=== PATIENT | female | born 1980 | race Caucasian/White ===

== ENCOUNTER 2017-01-30 05:33 | Inpatient (IN) | payer OTHER ==
[2017-01-30] VITALS (19 sets, daily range): BP systolic 103–126; BP diastolic 58–109; PULSE 16–84; TEMP 97.5–98.2
[~2017-01-30] VITALS: Ht 175.3 cm; Wt 95.9 kg
[~2017-01-30 05:33] MED LIST: SYNTHROID0.088 MG/T PO
[2017-01-30] MEDS ORDERED: SYNTHROID0.1 MG/TAB PO (06:27)
[2017-01-30] MEDS ORDERED: PRENATAL1 TA7 PO (06:28)
[2017-01-30] MEDS ORDERED: FLONASE NASAL S16 GM NS (06:28)
[2017-01-30] MEDS ORDERED: ZYRTEC 10MG10 MG PO (06:29)
[2017-01-30] MEDS ORDERED: ZOVIRAX400 MG PO (06:30)
[2017-01-30] MEDS ORDERED: PRIL40 PO (06:31)
[2017-01-30 06:47] LABS: BASO % 0.3 % (0.0-2.0); EOS # 0.1 (0.0-0.7); EOS % 0.8 % (0-4.0); GRAN # 4.3 (1.4-6.5); GRAN % 68.8 % (42.2-75.2); HEMOGLOBIN 12.1 g/dl (12.5-16.0); LYMPH # 1.5 (1.2-3.4); LYMPH % 23.3 % (20.0-51.0); MEAN CELL VOLUME 91 fl (80.0-100.0); MEAN CORPUSCULAR HEMOGLOBIN 30 pg (27.0-31.0); MEAN CORPUSCULAR HGB CONC 34 g/dl (33.0-37.0); MEAN PLATELET VOLUME 11.4 fl (7.4-10.4); MONO # 0.4 (0.1-0.6); MONO % 6.6 % (1.7-9.3); PLATELET COUNT 214 K/mm3 (130-400); RED BLOOD COUNT 3.98 M/mm3 (4.10-5.30); REDCELL DISTRIBUTION WIDTH-CV 13.2 % (11.5-14.5); WHITE BLOOD COUNT 6.2 K/mm3 (4.8-10.8)
[2017-01-30 06:48] LABS: HEMATOCRIT 36.1 % (37.0-47.0)
[2017-01-31 06:30] VITALS: BP 109/65; PULSE 72; TEMP 97.4
[2017-01-31 07:30] LABS: HEMATOCRIT 31.8 % (37.0-47.0); HEMOGLOBIN 10.6 g/dl (12.5-16.0)
[2017-01-31] MEDS ORDERED: IBU600 MG PO (09:11)
[2017-01-31] MEDS ORDERED: PERCOCET 325 MG1 TA2 PO (09:11)
[2017-01-31 16:00] VITALS: BP 114/68; PULSE 78; TEMP 98.3
[2017-01-31 20:00] VITALS: BP 111/63; PULSE 66; TEMP 97.1
[2017-02-01 07:00] VITALS: BP 117/54; PULSE 67; TEMP 97.2
== END 2017-02-01 15:53 | disposition home or self-care (01) | DRG 766 ==
LOC: OB 05:33 → EDSTATUS 09:01 → LDR 09:02 → LDRO 13:14 → OB 02-01 15:53
PROVIDERS: Obstetrics & Gynecology
PROC: 10D00Z1 Extraction of Products of Conception, Low, Open Approach (ICD-10-PCS; principal; 2017-01-30)
DX: O32.1XX0 Maternal care for breech presentation, not applicable or unspecified (principal); O99.284 Endocrine, nutritional and metabolic diseases complicating childbirth; E03.9 Hypothyroidism, unspecified; Z3A.39 39 weeks gestation of pregnancy; Z37.0 Single live birth
CPT/HCPCS: J0690; J1885; J2270; J2370; J2405; J2590; J2765; J7120

== ENCOUNTER → 2017-02-11 | Outpatient (CLI) | payer OTHER ==
[~2017-02-11] MED LIST changes: +FLONASE NASAL S16 GM NS; +IBU600 MG PO; +PERCOCET 325 MG1 TA2 PO; +PRENATAL1 TA7 PO; +PRIL40 PO; +SYNTHROID0.1 MG/TAB PO; +ZOVIRAX400 MG PO; +ZYRTEC 10MG10 MG PO
== END ==
LOC: OLC 14:10
DX: Z39.1 Encounter for care and examination of lactating mother (principal); Z71.89 Other specified counseling

== ENCOUNTER → 2017-02-17 | Outpatient (CLI) | payer OTHER | LOC: OLC 13:18 | DX: Z39.1 Encounter for care and examination of lactating mother (principal); Z71.89 Other specified counseling ==

== ENCOUNTER → 2017-02-24 | Outpatient (CLI) | payer OTHER | LOC: OLC 13:31 | DX: Z39.1 Encounter for care and examination of lactating mother (principal); Z71.89 Other specified counseling ==

== ENCOUNTER 2018-10-25 18:43 | Emergency (ER) | payer OTHER ==
[~2018-10-25] VITALS: Ht 175.3 cm; Wt 87.3 kg
[2018-10-25 18:49] VITALS: TEMP 97.9
[2018-10-25 19:23] LABS: COLLECTION METHOD CLEAN CATCH
[2018-10-25 19:26] LABS: BASO % 0.3 % (0.0-2.0); EOS % 0.5 % (0-4.0); GRAN # 5.9 (1.4-6.5); HEMOGLOBIN 12.6 g/dl (12.5-16.0); LYMPH # 1.3 (1.2-3.4); LYMPH % 16.4 % (20.0-51.0); MEAN CELL VOLUME 93 fl (80.0-100.0); MEAN CORPUSCULAR HEMOGLOBIN 32 pg (27.0-31.0); MEAN CORPUSCULAR HGB CONC 35 g/dl (33.0-37.0); MEAN PLATELET VOLUME 10.5 fl (7.4-10.4); MONO # 0.4 (0.1-0.6); MONO % 5.5 % (1.7-9.3); PLATELET COUNT 184 K/mm3 (130-400); REDCELL DISTRIBUTION WIDTH-CV 12.4 % (11.5-14.5)
[2018-10-25 19:29] LABS: PH 6 (5-8); SQUAMOUS EPITHELIAL 0-2 /hpf; URINE APPEARANCE Clear; URINE BACTERIA None Seen /hpf; URINE BILIRUBIN Negative (NEGATIVE); URINE BLOOD Negative (NEGATIVE); URINE COLOR Straw; URINE GLUCOSE Negative (NEGATIVE); URINE KETONE Negative (NEGATIVE); URINE LEUKOCYTE ESTERASE Negative (NEGATIVE); URINE NITRATE Negative (NEGATIVE); URINE PROTEIN(semi-quant) Negative (NEGATIVE); URINE RBC 0-2 /hpf; URINE UROBILINOGEN Negative (NEGATIVE)
[2018-10-25 19:33] LABS: HEMATOCRIT 36.2 % (37.0-47.0)
[2018-10-25] MEDS ORDERED: ZYRTEC 10MG10 MG PO (19:43)
[2018-10-25 19:44] LABS: ALBUMIN 3.8 gm/dL (3.5-5.0); BILIRUBIN,TOTAL 0.1 mg/dL (0.0-1.0); CALCIUM 9.5 mg/dL (8.4-10.2); CREATININE, serum 0.59 mg/dL (0.52-1.25); POTASSIUM 3.7 mmol/L (3.4-5.0); TOTAL PROTEIN 7.5 gm/dL (6.4-8.2)
[2018-10-25 21:59] VITALS: BP 117/64; PULSE 69
== END 2018-10-25 22:01 | disposition home or self-care (01) ==
LOC: COL.ER 18:43
PROVIDERS: Emergency Medicine
DX: O26.619 Liver and biliary tract disorders in pregnancy, unspecified trimester (principal); K80.50 Calculus of bile duct without cholangitis or cholecystitis without obstruction; Z98.890 Other specified postprocedural states; Z3A.19 19 weeks gestation of pregnancy
CPT/HCPCS: J1170; J2550; J7030

== ENCOUNTER → 2018-10-28 | Outpatient (CLI) | payer OTHER | LOC: COL.RAD 07:02 | DX: K80.20 Calculus of gallbladder without cholecystitis without obstruction (principal) ==

== ENCOUNTER 2019-03-03 01:36 | Inpatient (IN) | payer BC ==
[2019-03-03] VITALS (19 sets, daily range): BP systolic 111–137; BP diastolic 64–85; PULSE 66–98; TEMP 97.7–98.3
[~2019-03-03] VITALS: Ht 172.7 cm; Wt 95.5 kg
--- NOTE | 2019-03-03 01:50 | NUR ---
at 38 weeks and 1 day presents to hospital with report of spontaneous rupture of membranes. Pt reports she felt a gush a fluid around 0100. Clear fluid. Good movement, feels occasional cramping/contractions but nothing very strong. Pt denies RUQ pain, headaches or blurr vision. Amnitrace positive. SVE 1-2/90/-2, much fluid noted after checking cervix. Pt would be a repeat c/section. Admission assessment started.
--- NOTE | 2019-03-03 02:30 | NUR ---
IV started in left wrist with 1 attempt. Labs obtained off of IV start. Lactated Ringers infusing to gravity. Consents reviewed and signed. Patrick Chery CRNA updated.
[2019-03-03 02:39] LABS: BASO % 0.1 % (0.0-2.0); EOS % 0.4 % (0-4.0); GRAN % 70.8 % (42.2-75.2); HEMATOCRIT 36.9 % (37.0-47.0); HEMOGLOBIN 12.6 g/dl (12.5-16.0); LYMPH # 1.5 (1.2-3.4); LYMPH % 21.7 % (20.0-51.0); MEAN CELL VOLUME 89 fl (80.0-100.0); MEAN CORPUSCULAR HEMOGLOBIN 30 pg (27.0-31.0); MEAN CORPUSCULAR HGB CONC 34 g/dl (33.0-37.0); MONO # 0.5 (0.1-0.6); MONO % 6.6 % (1.7-9.3); PLATELET COUNT 178 K/mm3 (130-400); RED BLOOD COUNT 4.14 M/mm3 (4.10-5.30); REDCELL DISTRIBUTION WIDTH-CV 13.2 % (11.5-14.5)
[2019-03-04 07:10] VITALS: BP 106/62; PULSE 75; TEMP 97.5
[2019-03-04 07:47] LABS: HEMOGLOBIN 11.2 g/dl (12.5-16.0)
[2019-03-04 07:54] LABS: HEMATOCRIT 34.6 % (37.0-47.0)
[2019-03-04] MEDS ORDERED: PERCOCET 325 MG1 TA2 PO (09:19)
[2019-03-04] MEDS ORDERED: IBU600 MG PO (09:19)
--- NOTE | 2019-03-04 10:21 | NUR ---
Initial visit; Mom thanked Photocopying Equipment [employer]ic for offering congratulations and God's blessings for their family for the of their son. Photocopying Equipment Mechanic thanked them for choosing our hospital.
[2019-03-04 16:21] VITALS: BP 105/74; PULSE 67; TEMP 97.4
[2019-03-04 22:50] VITALS: BP 107/63; PULSE 73; TEMP 97.5
[2019-03-05 08:13] VITALS: BP 108/80; PULSE 92; TEMP 98
== END 2019-03-05 13:40 | disposition home or self-care (01) | DRG 788 ==
LOC: LDRO 01:36 → LDR 01:50 → OB 04:40
PROVIDERS: Obstetrics & Gynecology; ADMIT Obstetrics & Gynecology
PROC: 10D00Z1 Extraction of Products of Conception, Low, Open Approach (ICD-10-PCS; principal; 2019-03-03)
DX: O34.211 Maternal care for low transverse scar from previous cesarean delivery (principal); N85.8 Other specified noninflammatory disorders of uterus; Z3A.38 38 weeks gestation of pregnancy; Z37.0 Single live birth; O99.284 Endocrine, nutritional and metabolic diseases complicating childbirth; E03.9 Hypothyroidism, unspecified; J45.909 Unspecified asthma, uncomplicated; O90.0 Disruption of cesarean delivery wound; Z88.1 Allergy status to other antibiotic agents
CPT/HCPCS: J0690; J1885; J2175; J2370; J2405; J3010; J7120

== ENCOUNTER 2022-03-07 09:18 | Outpatient (RCR) | payer BC | END 2022-03-09 | LOC: PT.GENESIS | DX: M25.571 Pain in right ankle and joints of right foot (principal) ==

== ENCOUNTER → 2022-04-09 | Outpatient (RCR) | payer BC | END | disposition home or self-care (01) | LOC: PT.GENESIS | DX: M25.571 Pain in right ankle and joints of right foot (principal) ==

== ENCOUNTER → 2022-05-09 | Outpatient (RCR) | payer BC | END | disposition still patient (30) | LOC: PT.GENESIS | DX: M25.571 Pain in right ankle and joints of right foot (principal); Z98.890 Other specified postprocedural states ==

== ENCOUNTER 2022-05-22 11:00 | Outpatient (RCR) | payer BC | END 2022-06-06 10:42 | disposition home or self-care (01) | LOC: PT.GENESIS 11:00 | DX: M25.571 Pain in right ankle and joints of right foot (principal) ==

== ENCOUNTER → 2022-07-24 | Outpatient (CLI) | payer BC | LOC: MC.RAD 11:06 | DX: Z12.31 Encounter for screening mammogram for malignant neoplasm of breast (principal); R92.1 Mammographic calcification found on diagnostic imaging of breast ==

== ENCOUNTER → 2022-07-26 | Outpatient (CLI) | payer BC | LOC: MC.RAD 12:54 | DX: R92.0 Mammographic microcalcification found on diagnostic imaging of breast (principal) ==

== ENCOUNTER → 2022-07-31 | Outpatient (CLI) | payer BC | LOC: MC.RAD 08:23 | DX: R92.0 Mammographic microcalcification found on diagnostic imaging of breast (principal) ==

== ENCOUNTER → 2023-02-12 | Outpatient (CLI) | payer OTHER ==
[~2023-02-12] MED LIST changes: +ASTELIN NASAL S34 ML NS; +PROTONIX 40MG T40 MG PO; +SYNTHROID0.112 MG/T PO
== END ==
LOC: COL.RAD 07:18
DX: K21.9 Gastro-esophageal reflux disease without esophagitis (principal); R14.2 Eructation; J02.9 Acute pharyngitis, unspecified
CPT/HCPCS: A9541